=== PATIENT | female | born 1975 | race Caucasian/White ===

== ENCOUNTER 2022-10-06 18:40 | Emergency (ER) | payer BC, MEDICAID ==
[2022-10-06] MEDS ORDERED: Sodium Chloride 0.9% 1,000 ML IV ONE (19:03)
[2022-10-06] MEDS ORDERED: Ondansetron 4 MG/2 ML SDV IVPUSH PRN (19:03)
[2022-10-06 19:27] LABS: BARBITURATE SCREEN,URINE NEGATIVE (NEGATIVE); BENZODIAZEPINES SCREEN,URINE NEGATIVE (NEGATIVE); EDDP,URINE SCREEN NEGATIVE (NEGATIVE); TCA SCREEN,URINE NEGATIVE (NEGATIVE); THC SCREEN,URINE 50 NG/ML POSITIVE (NEGATIVE)
[2022-10-06 19:28] LABS: BUPRENORPHINE SCREEN,URINE NEGATIVE (NEGATIVE)
[2022-10-06 19:42] LABS: ANION GAP 15.6 meq/L (7-15); CHLORIDE,CL 90 mmol/L (98-107); ESTIMATED GFR 111 mL/min (>=60); SODIUM,NA 130 mmol/L (136-145)
[2022-10-06] MEDS ORDERED: Sodium Chloride 0.9% 10 ML Syringe FLUSH PRN (20:30)
[2022-10-06] MEDS ORDERED: Iopamidol 612 MG/ML 100 ML Bottle IVPUSH STA (20:40)
[2022-10-06] MEDS ORDERED: Sodium Chloride 1 GM Tab PO ONE (20:45)
[2022-10-06] MEDS ORDERED: Potassium Chloride 20 MEQ Tab.ER PO ONE (20:45)
[2022-10-06] MEDS ORDERED: NS + KCl 20mEq/L 1,000 ML IV SCH (23:15)
[2022-10-07] MEDS ORDERED: Acetaminophen 325 MG Tab PO PRN (04:19)
[2022-10-07 07:55] LABS: CHLORIDE,CL 104 mmol/L (98-107); SODIUM,NA 139 mmol/L (136-145)
[2022-10-07 07:59] LABS: ANION GAP 14.7 meq/L (7-15); ESTIMATED GFR 116 mL/min (>=60)
[2022-10-07 09:07] VITALS: BP 127/87; PULSE 84
== END 2022-10-07 09:07 | disposition home or self-care (01) ==
LOC: LL.ED 18:40
DX: F10.10 Alcohol abuse, uncomplicated (principal); F33.1 Major depressive disorder, recurrent, moderate; F41.9 Anxiety disorder, unspecified; E87.1 Hypo-osmolality and hyponatremia; E87.6 Hypokalemia; Z88.5 Allergy status to narcotic agent
CPT/HCPCS: 36415; 71046; 74178; 80053; 80305-QW; 80307; 81003; 82270; 85025; 93005; 93010; 96361; 96365; 96366; 99284; 99285-25; A9270-GY; J3480; J3490; J7030; Q9967